=== PATIENT | female | born 1975 | race Caucasian/White ===

== ENCOUNTER 2017-12-30 09:47 | Emergency (ER) | payer SELFPAY ==
[2017-12-30] MEDS ORDERED: Ibuprofen TAB* 600 MG PO ONE (11:26)
--- NOTE | 2017-12-30 11:26 | UC ---
Lower Extremity/Ankle HPI - HPI Summary HPI Summary: Twisted left ankle when she fell down the stairs yesterday pain medial and lateral ankle---has been able to partial weight bear - History of Current Complaint Chief Complaint: UCLowerExtremity Stated Complaint: ANKLE INJURY Time Seen by Provider: 12/30/17 11:21 Hx Obtained From: Patient Hx Last Menstrual Period: 12/26/17 ?: No Onset/Duration: Sudden Onset, Lasting Days - 1, Still Present Severity Initially: Moderate Severity Currently: Moderate Pain Intensity: 7 Pain Scale Used: 0-10 Numeric Aggravating Factor(s): Standing, Ambulation Alleviating Factor(s): Rest, Elevation Able to Bear Weight: Yes - with pain - Allergies/Home Medications Allergies/Adverse Reactions: Allergies Allergy/AdvReac Type Severity Reaction Status Date / Time No Known Allergies Allergy Verified 12/30/17 09:49 PMH/Surg Hx/FS Hx/Imm Hx Previously Healthy: No - Chronic back pain Cardiovascular History: Hypertension GI/ History: Gastroesophageal Reflux Psychological History: Depression - Surgical History Surgical History: Yes Surgery Procedure, Year, and Place: T&A, ankle plate and screws, [place] [facility] [place] of [place] fragments 02[place]12[place], Dorsal column stimulator. LEFT CARPAL TUNNEL SURGERY 01/2014 - Family History Known Family History: Positive: None - Social History Occupation: Employed Full-time Lives: With Family Alcohol Use: Rare Substance Use Type: None Smoking Status (MU): Never Smoked Tobacco Type: Cigarettes Review of Systems Constitutional: Negative Skin: Negative Eyes: Negative ENT: Negative Respiratory: Negative Cardiovascular: Negative Gastrointestinal: Negative Genitourinary: Negative Motor: Negative Neurovascular: Negative Musculoskeletal: Arthralgia - left ankle medial and lateral Neurological: Negative Psychological: Negative Is Patient Immunocompromised?: No All Other Systems Reviewed And Are Negative: Yes Physical Exam Triage Information Reviewed: Yes Appearance: Ill-Appearing, Pain Distress - mild, Obese Vital Signs: Initial Vital Signs Temp 97.1 F 12/30/17 09:58 Pulse 83 12/30/17 09:58 Resp 16 12/30/17 09:58 BP 147/74 12/30/17 09:58 Pulse Ox 100 12/30/17 09:58 Vital Signs Reviewed: Yes Eye Exam: Normal Eyes: Positive: Conjunctiva Clear ENT Exam: Normal ENT: Positive: Normal ENT inspection, Hearing grossly normal, Pharynx normal, TMs normal. Negative: Nasal congestion, Nasal drainage, Tonsillar swelling, Tonsillar exudate, Trismus, Muffled voice, Hoarse voice, Dental tenderness, Sinus tenderness Dental Exam: Normal Neck exam: Normal Neck: Positive: Supple, Nontender, No Lymphadenopathy Respiratory Exam: Normal Respiratory: Positive: Chest non-tender, Lungs clear, Normal breath sounds, No respiratory distress, No accessory muscle use Cardiovascular Exam: Normal Cardiovascular: Positive: RRR, No Murmur, Pulses Normal, Brisk Capillary Refill Musculoskeletal Exam: Normal, Other Musculoskeletal: Positive: No Edema, Strength Limited @ - left ankle, ROM Limited @ - left ankle Neurological Exam: Normal Neurological: Positive: Alert, Muscle Tone Normal Psychological Exam: Normal Skin Exam: Normal Diagnostics - Radiology No standard instances Xray Interpretation: Positive (See Comments) - jordyn structures WNL, does have small joint effusion Radiology Interpretation Completed By: Radiologist Lower Extremity Course/Dx - Course Course Of Treatment: Non-weightbearing, jose d gel splint crutches, rice add Ibuprofen follow with Dr. Massey in 4 days - Differential Dx/Diagnosis Provider Diagnoses: Left ankle sprain Discharge - Discharge Plan Condition: Stable Disposition: HOME Patient Education Materials: Ibuprofen (By mouth), Ankle Sprain (ED), Crutch Instructions (ED), R.I.C.E. Treatment (ED) Referrals: Carlos Eduardo Berg MD [Primary Care Provider] - If Needed Mauro Massey MD [Medical Doctor] - 4 Days
--- NOTE | 2017-12-30 12:16 | RAD ---
Indication: Medial and lateral LEFT ankle pain following injury/fall down stairs. Comparison: No relevant prior exams available on the [facility] for comparison. Technique: AP, mortise, and lateral views LEFT ankle. Report: Negative for fracture or malalignment. Suggestion of talocrural joint effusion. Small plantar fascia origin bone spur. Significant soft tissue swelling over both the medial and lateral malleoli. IMPRESSION: Significant medial and lateral soft tissue swelling and small talocrural joint effusion concerning for potential ligament injuries.
[2017-12-30 12:17] VITALS: BP 130/63
== END 2017-12-30 12:40 | disposition home or self-care (01) ==
LOC: UCEAST 09:47
DX: S93.402A Sprain of unspecified ligament of left ankle, initial encounter (principal); W10.9XXA Fall (on) (from) unspecified stairs and steps, initial encounter; Y93.9 Activity, unspecified; Y92.9 Unspecified place or not applicable; I10 Essential (primary) hypertension; K21.9 Gastro-esophageal reflux disease without esophagitis; F32.9 Major depressive disorder, single episode, unspecified; E66.9 Obesity, unspecified
CPT/HCPCS: 99213; A9270-GY; G0463

== ENCOUNTER 2018-11-23 20:23 | Emergency (ER) | payer OTHER ==
--- NOTE | 2018-11-23 22:50 | ED ---
Adult Trauma - HPI Summary HPI Summary: Patient complains of mechanical fall from height of about 6 feet onto her back with positive head injury. Complains of headache, left back pain, left shoulder pain. Denies LOC, vision change, N/V, AMS, neck pain, abdominal pain, right upper extremity pain, bilateral lower extremity pain. History of HTN,, chronic back pain. Ambulatory with pain in back. - History of Current Complaint Chief Complaint: EDTraumaMultiple Stated Complaint: FALL/HEAD INJURY/BACK PAIN Time Seen by Provider: 11/23/18 21:13 Hx Obtained From: Patient Hx Last Menstrual Period: 12/26/17 ?: No Mechanism of Injury: Fall Ambulatory at the Scene: Yes Onset of Pain: Immediate Onset Severity: Severe Current Severity: Severe Pain Intensity: 9 Pain Scale Used: 0-10 Numeric Location: Head, Back, Extremities Character: Aching, Sharp Aggravating Factor(s): Movement, Deep Breaths, Weight Bearing, Ambulation Alleviating Factor(s): Nothing Associated Signs & Symptoms: Positive: Negative - Allergy/Home Medications Allergies/Adverse Reactions: Allergies Allergy/AdvReac Type Severity Reaction Status Date / Time No Known Allergies Allergy Verified 10/25/18 14:54 PMH/Surg Hx/FS Hx/Imm Hx Cardiovascular History: Reports: Hx Hypertension - on meds History: Denies: Hx Dialysis Musculoskeletal History: Reports: Hx Back Problems - lumbar spondylosis Sensory History: Denies: Hx Eye Prosthesis Neurological History: Reports: Other Neuro Impairments/Disorders - pain clinic pt, caudal approach Denies: Hx Developmental Delay Psychiatric History: Reports: Hx Anxiety, Hx Depression - Cancer History Cancer Type, Location and Year: chronic back pain - Surgical History Surgery Procedure, Year, and Place: T&A, ankle plate and screws, L4-5 [place] [facility] [place] fragments 02/12/06, Dorsal column stimulator. LEFT CARPAL TUNNEL SURGERY 01/2014 Hx Anesthesia Reactions: No Infectious Disease History: No Infectious Disease History: Denies: Traveled Outside the [place] in Last 30 Days - Family History Known Family History: Positive: None, Non-Contributory - Social History Lives: With Family Alcohol Use: Rare Alcohol Amount: 0-1 drinks/wk Substance Use Type: Reports: Marijuana Substance Use Comment - Amount & Last Used: Prescribed Smoking Status (MU): Former Smoker Type: Cigarettes Review of Systems Constitutional: Negative Eyes: Negative ENT: Negative Cardiovascular: Negative Respiratory: Negative Gastrointestinal: Negative Genitourinary: Negative Musculoskeletal: Other Skin: Other Positive: Headache Psychological: Normal All Other Systems Reviewed And Are Negative: Yes Physical Exam - Summary Physical Exam Summary: Hematoma back of the head. No evidence of oral or facial trauma. Full range of motion of neck with no pain tenderness to palpation. No tenderness to palpation along the entire spine. Tenderness with palpation of left paraspinal muscles of thoracic and lumbar spine. No ecchymosis, erythema, deformity, swelling noted to back. Lung sounds clear to auscultation bilaterally. No pain with palpation of chest wall, abdomen, right upper extremity, bilateral lower extremities. Full range of motion of all extremities. No ecchymosis, erythema, deformity, swelling noted to left shoulder, chest, abdomen. Neuro exam normal. Triage Information Reviewed: Yes Vital Signs On Initial Exam: Initial Vitals Temp Pulse Resp BP Pulse Ox 100 F 122 20 146/84 100 11/23/18 20:25 11/23/18 20:25 11/23/18 20:25 11/23/18 20:25 11/23/18 20:25 Vital Signs Reviewed: Yes Appearance: Positive: Well-Appearing Skin: Positive: Warm Head/Face: Positive: Normal Head/Face Inspection Eyes: Positive: Normal ENT: Positive: Normal ENT inspection Dental: Negative: Dental Fracture @, Bleeding Neck: Positive: Supple Respiratory/Lung Sounds: Positive: Clear to Auscultation Cardiovascular: Positive: Normal Abdomen Description: Positive: Nontender Musculoskeletal: Positive: Normal Neurological: Positive: Normal Psychiatric: Positive: Normal AVPU Assessment: Alert - Liz Coma Scale Best Eye Response: 4 - Spontaneous Best Motor Response: 6 - Obeys Commands Best Verbal Response: 5 - Oriented Coma Scale Total: 15 Diagnostics - Vital Signs Vital Signs Temp Pulse Resp BP Pulse Ox 11/23/18 21:19 86 17 139/88 99 11/23/18 21:04 92 89/54 98 11/23/18 20:25 100 F 122 20 146/84 100 - Laboratory Lab Statement: Any lab studies that have been ordered have been reviewed, and results considered in the medical decision making process. Adult Trauma Course/Dx - Course Course Of Treatment: Patient complains of mechanical fall from height of about 6 feet onto her back with positive head injury. Complains of headache, left back pain, left shoulder pain. Denies LOC, vision change, N/V, AMS, neck pain, abdominal pain, right upper extremity pain, bilateral lower extremity pain. History of HTN,, chronic back pain. Ambulatory with pain in back. Physical exam:Hematoma back of the head. No evidence of oral or facial trauma. Full range of motion of neck with no pain tenderness to palpation. No tenderness to palpation along the entire spine. Tenderness with palpation of left paraspinal muscles of thoracic and lumbar spine. No ecchymosis, erythema, deformity, swelling noted to back. Lung sounds clear to auscultation bilaterally. No pain with palpation of chest wall, abdomen, right upper extremity, bilateral lower extremities. Full range of motion of all extremities. No ecchymosis, erythema, deformity, swelling noted to left shoulder, chest, abdomen. Neuro exam normal. Vital signs within normal limits. CT brain negative. CT brain requested due to significant mechanism. X-ray T-spine and L-spine negative. - Diagnoses Provider Diagnoses: Fall (on) (from) other stairs and steps, initial encounter Discharge - Sign-Out/Discharge Documenting (check all that apply): Patient Departure - Discharge Plan Condition: Stable Disposition: HOME Prescriptions: Cyclobenzaprine TAB* [Flexeril 10 MG TAB*] 10 mg PO TID PRN 4 Days #12 tab PRN Reason: Pain Patient Education Materials: Head Injury (ED) Referrals: Carlos Eduardo Berg MD [Primary Care Provider] - Additional Instructions: Alternate ibuprofen 600 mg with Tylenol 650 mg every 3 hours for pain control. Return to the ED for any new or worsening symptoms. - Billing Disposition and Condition Condition: STABLE Disposition: Home
[2018-11-23] MEDS ORDERED: Ibuprofen TAB* 600 MG PO ONE (22:54)
[2018-11-23] MEDS ORDERED: Cyclobenzaprine TAB* 10 MG PO ONE (22:59)
[2018-11-23 23:07] VITALS: BP 144/88
== END 2018-11-23 23:06 | disposition home or self-care (01) ==
LOC: ED 20:23
DX: S09.90XA Unspecified injury of head, initial encounter (principal); S00.03XA Contusion of scalp, initial encounter; W10.9XXA Fall (on) (from) unspecified stairs and steps, initial encounter; Y92.9 Unspecified place or not applicable; I10 Essential (primary) hypertension; Z87.891 Personal history of nicotine dependence
CPT/HCPCS: 70450; 72070; 72110; 99282; A9270-GY